=== PATIENT | female | born 1955 | race Caucasian/White ===

== ENCOUNTER → 2023-09-19 | Outpatient (CLI) | payer OTHER ==
[~2023-09-19] MED LIST: ESCI20 PO; ESTR2 PO; LEVSOD25 PO; POTCHL20ER PO; SPIR50 PO; ZOLP10 PO
== END | disposition home or self-care (01) ==
LOC: LAB SHORT 16:46 → LAB 16:46
DX: N39.0 Urinary tract infection, site not specified (principal)
CPT/HCPCS: 87086

== ENCOUNTER → 2023-11-08 | Outpatient (CLI) | payer OTHER | END | disposition home or self-care (01) | LOC: LAB SHORT 14:30 → LAB 14:30 | DX: N39.0 Urinary tract infection, site not specified (principal) | CPT/HCPCS: 87086 ==

== ENCOUNTER → 2025-03-23 | Outpatient (CLI) | payer OTHER | LOC: LAB 18:10 → LAB SHORT 18:10 | DX: N39.0 Urinary tract infection, site not specified (principal); R31.9 Hematuria, unspecified | CPT/HCPCS: 87086 ==